=== PATIENT | female | born 1950 | race Caucasian/White ===

== ENCOUNTER 2019-07-13 22:50 | Emergency (ER) | payer MEDICARE, OTHER ==
[~2019-07-13] VITALS: Ht 152.4 cm; Wt 68.9 kg
[2019-07-13 23:01] VITALS: Ht 152.4 cm; Wt 68.9 kg
[2019-07-13 23:42] LABS: BASOPHIL % 0.6 % (0-2); PLATELET COUNT 338 x10^3mcL (130-400)
[2019-07-13 23:43] LABS: RED CELL DISTRIBUTION WIDTH 18.4 % (11.5-14.5)
[2019-07-14 00:03] LABS: CARBON DIOXIDE 26.8 mmol/L (21-32); CHLORIDE SERUM 105 mmol/L (98-107); CREATININE SERUM 0.7 mg/dL (0.6-1.0); GFR1 > 60 mL/min; GLUCOSE SERUM 113 mg/dL (74-106); POTASSIUM SERUM 3.5 mmol/L (3.5-5.1); SODIUM SERUM 142 mmol/L (136-145)
[2019-07-14 00:09] LABS: ALBUMIN 3.5 g/dL (3.4-5.0); ALKALINE PHOSPHATASE 69 U/L (46-116); ALT/SGPT 13 U/L (14-59); AST/SGOT 16 U/L (15-37); BILIRUBIN TOTAL 0.3 mg/dL (0.20-1.00); TOTAL PROTEIN, SERUM 6.7 g/dL (6.4-8.2)
[2019-07-14 01:30] VITALS: BP 133/75
== END 2019-07-14 01:30 | disposition home or self-care (01) ==
LOC: ED 22:50
PROVIDERS: Emergency Medicine
DX: F41.9 Anxiety disorder, unspecified (principal); R00.2 Palpitations; R42 Dizziness and giddiness; F43.9 Reaction to severe stress, unspecified; E11.9 Type 2 diabetes mellitus without complications; I10 Essential (primary) hypertension; F32.9 Major depressive disorder, single episode, unspecified; Z88.0 Allergy status to penicillin
CPT/HCPCS: 36415; Q0092

== ENCOUNTER → 2019-07-31 | Day surgery (SDC) | payer MEDICARE, OTHER ==
[~2019-07-31] VITALS: Ht 154.9 cm; Wt 73.0 kg
[2019-07-31 08:29] VITALS: BP 123/67
[2019-07-31 10:34] VITALS: BP 127/69
== END | disposition home or self-care (01) ==
LOC: GI 07:52 → OR 08:30 → GI 09:15
DX: D12.4 Benign neoplasm of descending colon (principal); I10 Essential (primary) hypertension; E03.9 Hypothyroidism, unspecified; E78.5 Hyperlipidemia, unspecified; G20 Parkinson's disease; E11.39 Type 2 diabetes mellitus with other diabetic ophthalmic complication; H40.9 Unspecified glaucoma; H42 Glaucoma in diseases classified elsewhere; F32.9 Major depressive disorder, single episode, unspecified; Z88.0 Allergy status to penicillin; Z79.899 Other long term (current) drug therapy; Z79.84 Long term (current) use of oral hypoglycemic drugs
CPT/HCPCS: 45378; J1200; J1610; J2250; J2310; J3010; J3490